=== PATIENT | male | born 1965 | race Caucasian/White ===

== ENCOUNTER 2020-11-26 23:41 | Emergency (ER) | payer BC, OTHER ==
[2020-11-26 23:59] VITALS: BP 133/88; PULSE 68
--- NOTE | 2020-11-27 00:01 | EDM.PDOC ---
ED HPI GENERAL MEDICAL PROBLEM - General Chief Complaint: Lower Extremity Injury/Pain Stated Complaint: PAIN IN FOOT Time Seen by Provider: 11/26/20 23:45 Source of Information: Reports: Patient History Limitations: Reports: No Limitations - History of Present Illness INITIAL COMMENTS - FREE TEXT/NARRATIVE: Patient is a 55-year-old male with a history of high blood pressure diabetes presents today for left ankle pain. Patient states that he was working yesterday and after work he had pain to the medial side of his left ankle. Patient himself cannot remember any incident that he could have hurt the ankle. He has pain with walking or trying to flex or extend the ankle. Is not take any medicine for the pain at home he has no associated symptoms pain is nonradiating pain is achy feeling. Duration: Day(s): Location: Reports: Lower Extremity, Left Quality: Reports: Ache Severity: Mild Improves with: Reports: None Worsens with: Reports: Movement Context: Reports: Other Associated Symptoms: Reports: No Other Symptoms Left Foot Pain Score (Numeric/FACES): 9 - Related Data Allergies Allergy/AdvReac Type Severity Reaction Status Date / Time No Known Allergies Allergy Verified 04/30/14 16:56 Home Meds: Home Meds Levothyroxine Sodium [Synthroid] 200 mcg PO DAILY 11/26/20 [History] Meloxicam 15 mg PO DAILY 11/26/20 [History] buPROPion [Wellbutrin SR] 150 mg PO DAILY 11/26/20 [History] hydroCHLOROthiazide [Hydrochlorothiazide] 25 mg PO DAILY 11/26/20 [History] Review of Systems - Review of Systems Review Of Systems: See Below Constitutional: Reports: No Symptoms Eyes: Reports: No Symptoms Ears: Reports: No Symptoms Nose: Reports: No Symptoms Mouth/Throat: Reports: No Symptoms Respiratory: Reports: No Symptoms Cardiovascular: Reports: No Symptoms GI/Abdominal: Reports: No Symptoms Genitourinary: Reports: No Symptoms Musculoskeletal: Reports: Other (Ankle pain) Skin: Reports: No Symptoms Neurological: Reports: No Symptoms Psychiatric: Reports: No Symptoms ED EXAM, GENERAL - Physical Exam Exam: See Below Exam Limited By: No Limitations General Appearance: Alert, WD/WN, No Apparent Distress Respiratory/Chest: No Respiratory Distress Cardiovascular: Normal Peripheral Pulses Peripheral Pulses: 2+: Dorsalis Pedis (L), Dorsalis Pedis (R) GI/Abdominal: Normal Bowel Sounds Back Exam: Normal Inspection Extremities: Normal Inspection, Normal Range of Motion. No: Non-Tender (Tenderness to the medial side of left ankle) Neurological: Alert, Oriented Course - Vital Signs Last Recorded V/S: Last Vital Signs Temp 98.5 F 11/26/20 23:54 Pulse 68 11/26/20 23:54 Resp 19 11/26/20 23:54 BP 133/88 11/26/20 23:54 Pulse Ox 98 11/26/20 23:54 - Orders/Labs/Meds Orders: Active Orders 24 hr Category Date Time Status DME for Discharge [COMM] Stat Oth 11/27/20 01:31 Ordered - Re-Assessments/Exams Free Text/Narrative Re-Assessment/Exam: 11/27/20 01:32 Patient x-ray shows some lucencies we did a CAT scan did not show any fractures patient will be discharged home with crutches and Tao wrap What you are ordering Tao wrap and crutches Why you are ordering it Pain control help ambulation How it will benefit patient Ambulation How long is patient to use it 7-14days Departure - Departure Time of Disposition: 01:33 Disposition: Home, Self-Care 01 Condition: Good Clinical Impression: Ankle sprain - Discharge Information *PRESCRIPTION DRUG MONITORING PROGRAM REVIEWED*: Not Applicable *COPY OF PRESCRIPTION DRUG MONITORING REPORT IN PATIENT CORBY: Not Applicable Instructions: Ankle Sprain, [id number] Referrals: Evelyn Lemus GIS DATABASE ADMINISTRATOR [Primary Care Provider] - Forms: ED Department Discharge Additional Instructions: The following information is given to patients seen in the emergency department who are being discharged to home. This information is to outline your options for follow-up care. We provide all patients seen in our emergency department with a follow-up referral. The need for follow-up, as well as the timing and circumstances, are variable depending upon the specifics of your emergency department visit. If you don't have a primary care physician on staff, we will provide you with a referral. We always advise you to contact your personal physician following an emergency department visit to inform them of the circumstance of the visit and for follow-up with them and/or the need for any referrals to a consulting specialist. The emergency department will also refer you to a specialist when appropriate. This referral assures that you have the opportunity for follow-up care with a specialist. All of these measure are taken in an effort to provide you with optimal care, which includes your follow-up. Under all circumstances we always encourage you to contact your private physician who remains a resource for coordinating your care. When calling for follow-up care, please make the office aware that this follow-up is from your recent emergency room visit. If for any reason you are refused follow-up, please contact the [facility] Emergency Department at and asked to speak to the emergency department charge nurse. Please follow up with your primary care physician. If you do not have a primary care physician, see below: [facility] [address] [place] [id number] My [facility] [address] [place] [address] Seen today for pain in your left ankle. We did x-ray and CTs not show any fractures. Most likely sprain. We will place an Tao wrap and also gave you crutches. If you continue to have pain please follow-up with your primary care physician as you may need additional images. If you have any other concerning signs or symptom please return to the ED. Sepsis Event Note (ED) - Focused Exam Vital Signs: Vital Signs Temp Pulse Resp BP Pulse Ox 11/26/20 23:54 98.5 F 68 19 133/88 98 - My Orders Last 24 Hours: My Active Orders 11/27/20 01:31 DME for Discharge [COMM] Stat - Assessment/Plan Last 24 Hours: My Active Orders 11/27/20 01:31 DME for Discharge [COMM] Stat Plan: Patient is a 55-year-old male presents today for left ankle pain. Patient cannot remember any injuries to where he got hurt ankle but states there is tenderness to the left medial side. We will obtain x-rays and reassess.
--- NOTE | 2020-11-27 00:20 | CR ---
INDICATION: Pain medial side of ankle TECHNIQUE: Ankle radiograph 3 views left COMPARISON: None FINDINGS: Bone: On the lateral exam, there is a linear lucency projecting along the posterior aspect of the distal tibia and fibula. Joint: The ankle mortise joint and the visualized hindfoot joints are unremarkable in appearance. No significant ankle effusion is seen. Soft tissue: The [place] fat pad and the Achilles` tendon is normal in appearance. No radiopaque foreign bodies are seen. IMPRESSION: 1. On the lateral exam, there is a linear lucency projecting along the posterior aspect of the distal tibia and fibula. Assessment with CT or MRI may be helpful to exclude a nondisplaced fracture. Dictated by Shawn Guo MD @ 11/27/2020 12:18:57 AM Dictated by: Shawn Guo MD @ 11/27/2020 00:19:02 (Electronically Signed)
--- NOTE | 2020-11-27 01:19 | CT ---
INDICATION: Left ankle injury TECHNIQUE: CT left ankle without i.v. contrast. Coronal and sagittal reformats were obtained. COMPARISON: Radiograph 11/27/2020 FINDINGS: Bone: No acute fractures or aggressive bone lesions are identified. Large osteophytic ridges are present along the lateral aspect of the tibia and interosseous region which produces the linear lucency seen on recent radiograph. Joint: The visualized joints of the ankle and foot are unremarkable. No significant joint effusion is seen. Soft tissue: The Achilles tendon is unremarkable in appearance by CT. No fluid collections are identified. No radiopaque foreign bodies are seen. IMPRESSION: 1. No acute osseous injuries or abnormalities are noted. Dictated by Shawn Guo MD @ 11/27/2020 1:17:47 AM Please note that all CT scans at this facility use dose modulation, iterative reconstruction, and/or weight-based dosing when appropriate to reduce radiation dose to as low as reasonably achievable. Dictated by: Shawn Guo MD @ 11/27/2020 01:18:31 (Electronically Signed)
== END 2020-11-27 01:52 | disposition home or self-care (01) ==
LOC: MW.ED 23:41
DX: S93.402A Sprain of unspecified ligament of left ankle, initial encounter (principal); Z79.899 Other long term (current) drug therapy; X50.1XXA Overexertion from prolonged static or awkward postures, initial encounter; Y92.009 Unspecified place in unspecified non-institutional (private) residence as the place of occurrence of the external cause
CPT/HCPCS: 73610-26-LT; 73610-LT; 73700-26-LT; 73700-LT; 99284-25

== ENCOUNTER 2021-03-08 20:58 | Emergency (ER) | payer BC ==
[2021-03-08 22:14] VITALS: BP 135/77
[2021-03-08] MEDS ORDERED: Ketorolac 30 MG/ML SDV IM ONE (22:27)
[2021-03-08] MEDS ORDERED: Acetaminophen 325 MG Tab PO ONE (22:28)
--- NOTE | 2021-03-08 23:03 | EDM.PDOC ---
ED HPI GENERAL MEDICAL PROBLEM - General Chief Complaint: General Stated Complaint: COV POS, HIGH FEVER Time Seen by Provider: 03/08/21 22:58 - History of Present Illness INITIAL COMMENTS - FREE TEXT/NARRATIVE: HISTORY AND PHYSICAL: History of present illness: This is a 55-year-old gentleman who presents ER today secondary to extremely high fevers at home, body aches and myalgias. Patient reports that he was recently diagnosed with influenza A as well as coronavirus. Patient reports that he received his Regeneron therapy today and when he went home he was having chills as well as extremely high fever. Patient's reports that she gave him Mucinex cold therapy that had a antipyretic in it but is unsure how much in which 1. Patient denies any vomiting or diarrhea. He does complain of nausea with decreased appetite. Patient denies any chest pain, calf tenderness. Patient has not hemoptysis.. Patient is complaining of cough and congestion. Patient reports no nuchal rigidity or photophobia. Review of systems: As per history of present illness and below otherwise all systems reviewed and negative. Past medical history: As per history of present illness and as reviewed below otherwise noncontributory. Surgical history: As per history of present illness and as reviewed below otherwise noncontributory. Social history: No reported history of drug abuse. Family history: As per history of present illness and as reviewed below otherwise noncontributory. Physical exam: This patient was seen and evaluated during the 2019 SARS-CoV-2 novel coronavirus pandemic period. Community viral transmission is ongoing at time of this encounter and the emergency department is operating under pandemic response procedures. Constitutional: Patient is oriented to person, place, and time. Appears well-developed and well-nourished. No distress. HEENT: Moist mucous membranes. Neck supple, no nuchal rigidity, no photophobia, no Kernig's sign or Brudzinski sign, patient does not present with signs or symptoms of be consistent with meningitis. Head: Normocephalic and atraumatic Eyes: Right eye exhibits no discharge. Left eye exhibits no discharge. No scleral icterus Neck: Normal range of motion. No tracheal deviation present. Cardiovascular: Normal rate and regular rhythm. Pulmonary: Effort normal, no respiratory distress. Abdominal: No distention Musculoskeletal: Normal range of motion Neurologic: Alert and oriented to person, place and time. Skin: [place], warm and dry. Psychiatric: Normal mood and affect. Behavior is normal. Judgment and thought content normal. Nursing note and vital signs have been reviewed Diagnostics: [] Therapeutics: [] Assessment and plan: 55-year-old gentleman who presents ER today secondary to not feeling well after being diagnosed with coronavirus. Patient is clinically hemodynamically stable here in the ED. Patient's oxygen level ranges between 92 to 97% on room air while sleeping in bed. I have discussed with the patient symptomatic therapy for coronavirus and expectations. Patient was given a dose of Toradol and acetaminophen here in the ED and will be discharged home with instructions take ibuprofen and Zofran as well as acetaminophen at home to help with the symptoms. Patient has been instructed to return to the ER if you start having increased shortness of breath or any other new or concerning symptoms. Patient verbalized understanding. All questions been answered. At this time, the patient does not require care for inpatient level of care for coronavirus infection. Reassessment at the time of disposition demonstrates that the patient is in no acute distress. The patient has remained stable throughout the entire ED visit and is without objective evidence for acute process requiring urgent interventio n or hospitalization. The patient is stable for discharge, counseling is provided as documented above, discussed symptomatic treatment and specific conditions for return. I have spoken with the patient/caregiver and discussed todays findings, in addition to providing specific details for the plan of care. Questions are answered and there is agreement with the plan. Definitive disposition and diagnosis as appropriate pending reevaluation and review of above. Headache Pain Score (Numeric/FACES): 8 - Related Data Allergies Allergy/AdvReac Type Severity Reaction Status Date / Time No Known Allergies Allergy Verified 03/08/21 22:08 Home Meds: Home Meds Levothyroxine Sodium [Synthroid] 200 mcg PO DAILY 11/26/20 [History] Meloxicam 15 mg PO DAILY 11/26/20 [History] buPROPion [Wellbutrin SR] 150 mg PO DAILY 11/26/20 [History] Allopurinol [Zyloprim] 100 mg PO DAILY 03/08/21 [History] Ibuprofen 600 mg PO Q6HR PRN #30 tablet 03/08/21 [Rx] Ondansetron [Zofran ODT] 4 mg PO Q6H PRN #12 tab.dis 03/08/21 [Rx] predniSONE [Prednisone] 20 mg PO DAILY 03/08/21 [History] Past Medical History HEENT History: Reports: None Cardiovascular History: Reports: Hypertension Respiratory History: Reports: None Gastrointestinal History: Reports: None Genitourinary History: Reports: None Musculoskeletal History: Reports: None Neurological History: Reports: None Psychiatric History: Reports: None Endocrine/Metabolic History: Reports: Hypothyroidism Hematologic History: Reports: None Immunologic History: Reports: None Oncologic (Cancer) History: Reports: None Dermatologic History: Reports: None - Infectious Disease History Infectious Disease History: Reports: Chicken Pox, Novel Coronavirus - Past Surgical History Head Surgeries/Procedures: Reports: None Endocrine Surgical History: Reports: Thyroidectomy Social & Family History - Family History Family Medical History: No Pertinent Family History - Caffeine Use Caffeine Use: Reports: None - Recreational Drug Use Recreational Drug Use: No ED ROS GENERAL - Review of Systems Review Of Systems: See Below ED EXAM, GENERAL - Physical Exam Exam: See Below Course - Vital Signs Last Recorded V/S: Last Vital Signs Temp 100.7 F H 03/08/21 22:10 Pulse 104 H 03/08/21 22:10 Resp 18 03/08/21 22:10 BP 135/77 03/08/21 22:10 Pulse Ox 94 L 03/08/21 22:10 - Orders/Labs/Meds Meds: Medications Discontinued Medications Generic Name Dose Route Start Last Admin Trade Name Sivaq PRN Reason Stop Dose Admin Acetaminophen 650 mg 03/08/21 22:28 03/08/21 22:49 Acetaminophen 325 Mg Tab PO 03/08/21 22:29 650 mg NOW ONE Administration Ketorolac Tromethamine 30 mg 03/08/21 22:27 03/08/21 22:49 Ketorolac 30 Mg/Ml Sdv IM 03/08/21 22:28 30 mg ONETIME ONE Administration Departure - Departure Time of Disposition: 23:01 Disposition: Home, Self-Care 01 Condition: Good Clinical Impression: COVID-19 virus infection, URI due to influenza - Discharge Information Instructions: Influenza, Adult, [id number], 10 Things You Can Do to Manage Your COVID-19 Symptoms at Home - [facility] (09/17/2020), COVID-19 Quarantine vs. Isolation - [facility] (11/29/2020) Additional Instructions: You were seen in the ER today secondary signs and symptoms consistent with coronavirus and influenza. Over the next several days you will have high fevers, body aches, nausea. Please take ibuprofen 600 mg every 6 hours for body aches and fevers. You can also take acetaminophen 1 g every 6 hours as needed for body aches and fevers. You will also be given a prescription for Zofran to take to help your nausea over the next several days. Please return to the ER if you start having increased shortness of breath or if your ox level dips below 90%. 1. Your COVID-19 screening is positive. That means you do have the coronavirus and you are considered contagious. Your vital signs and oxygen saturation are well enough that you were able to monitor your symptoms at home. Continue to monitor for trouble breathing, new confusion or inability to arouse, bluish lips or face or any of the other symptoms we discussed -if this occurs please return to the emergency room. 2. Please self quarantine over the next 10 days. Inform any persons that you have been in contact with since you started becoming symptomatic that you have tested positive; they should be made aware and take the appropriate steps as needed. 3. You can take NyQuil during the evening to help get a restful night sleep. May alternate Tylenol and ibuprofen as needed for pain and fever management. 4. The [facility] department will be calling you and following up with you. The [place] COVID 19 Hotline phone number , They are open Sunday - Sunday 7am - 7pm. Follow up with your primary care provider for re-evaluation and re-testing after the 10 day quarantine and discuss when you should be seen. The following information is given to patients seen in the emergency department who are being discharged to home. This information is to outline your options for follow-up care. We provide all patients seen in our emergency department with a follow-up referral. The need for follow-up, as well as the timing and circumstances, are variable depending upon the specifics of your emergency department visit. If you don't have a primary care physician on staff, we will provide you with a referral. We always advise you to contact your personal physician following an emergency department visit to inform them of the circumstance of the visit and for follow-up with them and/or the need for any referrals to a consulting specialist. The emergency department will also refer you to a specialist when appropriate. This referral assures that you have the opportunity for follow-up care with a specialist. All of these measure are taken in an effort to provide you with optimal care, which includes your follow-up. Under all circumstances we always encourage you to contact your private physician who remains a resource for coordinating your care. When calling for follow-up care, please make the office aware that this follow-up is from your recent emergency room visit. If for any reason you are refused follow-up, please contact the [facility] Emergency Department at and asked to speak to the emergency department charge nurse. [facility] - [facility] [address] [place] [id number] [address] Sepsis Event Note (ED) - Focused Exam Vital Signs: Vital Signs Temp Pulse Resp BP Pulse Ox 03/08/21 22:10 100.7 F H 104 H 18 135/77 94 L
[2021-03-08 23:07] VITALS: PULSE 81
== END 2021-03-08 23:13 | disposition home or self-care (01) ==
LOC: MW.ED 20:58
DX: U07.1 COVID-19 (principal); J11.1 Influenza due to unidentified influenza virus with other respiratory manifestations; I10 Essential (primary) hypertension; E03.9 Hypothyroidism, unspecified; Z79.899 Other long term (current) drug therapy
CPT/HCPCS: 96372; 99283; A9270; J1885

== ENCOUNTER 2021-03-15 09:55 | Emergency (ER) | payer BC ==
[2021-03-15] MEDS ORDERED: Ketorolac 30 MG/ML SDV IVPUSH ONE (10:05)
[2021-03-15] MEDS ORDERED: Sodium Chloride 0.9% 1,000 ML IV ONE (10:05)
--- NOTE | 2021-03-15 10:14 | EDM.PDOC ---
ED HPI GENERAL MEDICAL PROBLEM - General Chief Complaint: Respiratory Problem Stated Complaint: COUGHING SOB Time Seen by Provider: 03/15/21 09:59 Source of Information: Reports: Patient History Limitations: Reports: No Limitations - History of Present Illness INITIAL COMMENTS - FREE TEXT/NARRATIVE: HISTORY AND PHYSICAL: History of present illness: Patient is a 55-year-old male who presents to the emergency room with complaints of fatigue, headache, body aches, cough, shortness of breath. Patient states he was diagnosed with COVID-19 and is currently off quarantine. He has had upper respiratory symptoms over the past 2 weeks, symptoms have worsened within the past 1 week and "unbearable" over the past 2 days. Patient denies any change in vision, syncope or near syncope. Denies any chest pain, back pain, abdominal pain, nausea, vomiting, diarrhea, constipation or dysuria. Has not noted any blood in urine or stool. Patient has been eating and drinking appropriately. Review of systems: As per history of present illness and below otherwise all systems reviewed and negative. Past medical history: As per history of present illness and as reviewed below otherwise noncontributory. Surgical history: As per history of present illness and as reviewed below otherwise noncontributory. Social history: See social history for further information Family history: As per history of present illness and as reviewed below otherwise noncontributory. Physical exam: General: Well developed and well nourished 55-year-old male. Alert and orientated x 3. Nontoxic in appearance and in no acute distress. Vital signs are stable and have been reviewed by me. Nursing notes were reviewed. HEENT: Atraumatic, normocephalic, pupils equal and reactive bilaterally, negative for conjunctival pallor or scleral icterus, mucous membranes moist, TMs normal bilaterally, throat clear, neck supple, nontender, trachea midline. No drooling or trismus noted. No meningeal signs. No hot potato voice noted. Lungs: Diminished to auscultation bilaterally. No wheezes, rales, or rhonchi. Chest nontender. Normal work of breathing, no accessory muscles used. Heart: S1S2, regular rate and rhythm without overt murmur, gallops, or rubs. No JVD. No peripheral edema Abdomen: Soft, nondistended, nontender. Normoactive bowel sounds. Negative for masses or costovertebral tenderness. Skin: Diaphoretic intact, warm, dry. No lesions or rashes noted. Hematologic: No petechiae or purpra. Mucosa appropriate color and normal nail bed color and refill. Extremities: Atraumatic, moves all extremities per self without difficulty or deficits, negative for cords or calf pain. Neurovascular unremarkable. Neuro: Awake, alert, oriented. Cranial nerves II through XII unremarkable. Cerebellum unremarkable. Motor and sensory unremarkable throughout. Exam nonfocal. Psychiatric: Mood and affect are appropriate. Normal thought process. Answering questions appropriately. Please note that the patient was seen and evaluated during the 2019 SARS-CoV-2 novel coronavirus pandemic period. Community viral transmission is ongoing at time of this encounter and the emergency department is operating under pandemic response procedures. Medical Decision Making: Patient is a 55-year-old male who presents to the emergency room with complaints of fatigue, headache, shortness of breath and cough. Patient was diagnosed with COVID-19 2 weeks ago, did receive the monoclonal antibody. States he was starting to feel improvement although over the past few days symptoms. Chest x-ray is unremarkable. Labs are unremarkable. VSS. Will do a Pro-Air inhaler for comfort care. I have talked with the patient about today's findings, in addition to providing specific details for plan of care. Reassessment at the time of disposition demonstrates that the patient is in no acute distress. The patient is stable for discharge, counseling was provided and we discussed in great detail signs and symptoms that would prompt them to return to the Emergency Department. Medication, follow up and supportive care measures were reviewed and discussed. Voices understanding and is agreeable to plan of care. Denies any further questions or concerns at this time. Diagnostics: CBC, CMP, troponin, EKG Therapeutics: Toradol, ProAir Prescription: None Impression: Long COVID-19 Plan: 1. You were evaluated today on an emergent basis. Your chest x-ray is normal. Your blood work, including cardiac enzymes are normal. Your symptoms are likely a prolonged COVID symptoms. 2. You can alternate Tylenol and ibuprofen as needed for pain and fever management. 3. We encourage you to follow up with your primary care provider for re- evaluation and further care/management. 4. If your symptoms should worsen, new symptoms develop or any of the signs and symptoms we discussed should arise please return to the emergency room or call 911 (if needed). Definitive disposition and diagnosis as appropriate pending reevaluation and review of above. Generalized Pain Score (Numeric/FACES): 5 - Related Data Allergies Allergy/AdvReac Type Severity Reaction Status Date / Time No Known Allergies Allergy Verified 03/15/21 10:07 Home Meds: Home Meds Levothyroxine Sodium [Synthroid] 200 mcg PO DAILY 11/26/20 [History] Allopurinol [Zyloprim] 100 mg PO DAILY 03/08/21 [History] Ibuprofen 600 mg PO Q6HR PRN #30 tablet 03/08/21 [Rx] predniSONE [Prednisone] 20 mg PO DAILY 03/08/21 [History] Past Medical History HEENT History: Reports: None Cardiovascular History: Reports: Hypertension Respiratory History: Reports: None Gastrointestinal History: Reports: None Genitourinary History: Reports: None Musculoskeletal History: Reports: None Neurological History: Reports: None Psychiatric History: Reports: None Endocrine/Metabolic History: Reports: Hypothyroidism Hematologic History: Reports: None Immunologic History: Reports: None Oncologic (Cancer) History: Reports: None Dermatologic History: Reports: None - Infectious Disease History Infectious Disease History: Reports: Chicken Pox, Novel Coronavirus - Past Surgical History Head Surgeries/Procedures: Reports: None Endocrine Surgical History: Reports: Thyroidectomy Social & Family History - Family History Family Medical History: No Pertinent Family History - Caffeine Use Caffeine Use: Reports: None ED ROS GENERAL - Review of Systems Review Of Systems: Comprehensive ROS is negative, except as noted in HPI. ED EXAM, GENERAL - Physical Exam Exam: See Below (See dictation) Course - Vital Signs Last Recorded V/S: Last Vital Signs Temp 96.5 F L 03/15/21 10:08 Pulse 82 03/15/21 10:08 Resp 20 03/15/21 10:08 BP 177/97 H 03/15/21 10:08 Pulse Ox 98 03/15/21 10:08 - Orders/Labs/Meds Orders: Active Orders 24 hr Category Date Time Status RT Post Treatment Assessment [RC] Click to Edit Care 03/15/21 12:55 Ordered RT Pre-Treatment Assessment [RC] Click to Edit Care 03/15/21 12:55 Ordered Albuterol [Ventolin HFA] Med 03/15/21 12:55 Once 1 gm INH ONETIME ONE Labs: Laboratory Tests 03/15/21 03/15/21 03/15/21 Range/Units 10:28 11:52 11:52 WBC 9.25 (4.0-11.0) K/uL RBC 5.08 (4.50-5.90) M/uL Hgb 14.7 (13.0-17.0) g/dL Hct 42.5 (38.0-50.0) % MCV 83.7 (80.0-98.0) fL MCH 28.9 (27.0-32.0) pg MCHC 34.6 (31.0-37.0) g/dL RDW Std Deviation 38.6 (28.0-62.0) fl RDW Coeff of Amy 13 (11.0-15.0) % Plt Count 221 (150-400) K/uL MPV 10.40 (7.40-12.00) fL Neut % (Auto) 74.9 (48.0-80.0) % Lymph % (Auto) 11.9 L (16.0-40.0) % Hamlin % (Auto) 12.1 (0.0-15.0) % Eos % (Auto) 1.0 (0.0-7.0) % Baso % (Auto) 0.1 (0.0-1.5) % Neut # (Auto) 6.9 H (1.4-5.7) K/uL Lymph # (Auto) 1.1 (0.6-2.4) K/uL Hamlin # (Auto) 1.1 H (0.0-0.8) K/uL Eos # (Auto) 0.1 (0.0-0.7) K/uL Baso # (Auto) 0.0 (0.0-0.1) K/uL Nucleated RBC % 0.0 /100WBC Nucleated RBCs # 0 K/uL Sodium 138 (136-148) mmol/L Potassium 4.0 (3.5-5.1) mmol/L Chloride 105 (98-107) mmol/L Carbon Dioxide 26.5 (21.0-32.0) mmol/L BUN 17 (7.0-18.0) mg/dL Creatinine 0.7 L (0.8-1.3) mg/dL Est Cr Clr Drug Dosing 118.07 mL/min Estimated GFR (MDRD) > 60.0 ml/min Glucose 89 (74-106) mg/dL Calcium 9.1 (8.5-10.1) mg/dL Total Bilirubin 0.2 (0.2-1.0) mg/dL AST 15 (15-37) IU/L ALT 33 (14-63) IU/L Alkaline Phosphatase 99 (46-116) U/L Troponin I < 0.050 (0.000-0.056) ng/mL Total Protein 7.4 (6.4-8.2) g/dL Albumin 3.4 (3.4-5.0) g/dL Globulin 4.0 (2.6-4.0) g/dL Albumin/Globulin Ratio 0.9 (0.9-1.6) Monoscreen (NEG) Influenza Type A RNA NEGATIVE (NEGATIVE) Influenza Type B RNA NEGATIVE (NEGATIVE) SARS-CoV-2 RNA (DONNA) POSITIVE H (NEGATIVE) 03/15/21 Range/Units 11:52 WBC (4.0-11.0) K/uL RBC (4.50-5.90) M/uL Hgb (13.0-17.0) g/dL Hct (38.0-50.0) % MCV (80.0-98.0) fL MCH (27.0-32.0) pg MCHC (31.0-37.0) g/dL RDW Std Deviation (28.0-62.0) fl RDW Coeff of Amy (11.0-15.0) % Plt Count (150-400) K/uL MPV (7.40-12.00) fL Neut % (Auto) (48.0-80.0) % Lymph % (Auto) (16.0-40.0) % Hamlin % (Auto) (0.0-15.0) % Eos % (Auto) (0.0-7.0) % Baso % (Auto) (0.0-1.5) % Neut # (Auto) (1.4-5.7) K/uL Lymph # (Auto) (0.6-2.4) K/uL Hamlin # (Auto) (0.0-0.8) K/uL Eos # (Auto) (0.0-0.7) K/uL Baso # (Auto) (0.0-0.1) K/uL Nucleated RBC % /100WBC Nucleated RBCs # K/uL Sodium (136-148) mmol/L Potassium (3.5-5.1) mmol/L Chloride (98-107) mmol/L Carbon Dioxide (21.0-32.0) mmol/L BUN (7.0-18.0) mg/dL Creatinine (0.8-1.3) mg/dL Est Cr Clr Drug Dosing mL/min Estimated GFR (MDRD) ml/min Glucose (74-106) mg/dL Calcium (8.5-10.1) mg/dL Total Bilirubin (0.2-1.0) mg/dL AST (15-37) IU/L ALT (14-63) IU/L Alkaline Phosphatase (46-116) U/L Troponin I (0.000-0.056) ng/mL Total Protein (6.4-8.2) g/dL Albumin (3.4-5.0) g/dL Globulin (2.6-4.0) g/dL Albumin/Globulin Ratio (0.9-1.6) Monoscreen NEGATIVE (NEG) Influenza Type A RNA (NEGATIVE) Influenza Type B RNA (NEGATIVE) SARS-CoV-2 RNA (DONNA) (NEGATIVE) Meds: Medications Discontinued Medications Generic Name Dose Route Start Last Admin Trade Name Freq PRN Reason Stop Dose Admin Sodium Chloride 1,000 mls @ 999 mls/hr 03/15/21 10:05 Normal Saline IV 03/15/21 11:05 STAT ONE Ketorolac Tromethamine 30 mg 03/15/21 10:05 Ketorolac 30 Mg/Ml Sdv IVPUSH 03/15/21 10:06 ONETIME ONE Ketorolac Tromethamine 60 mg 03/15/21 11:59 Ketorolac 60 Mg/2 Ml Sdv IM 03/15/21 12:00 ONETIME ONE Departure - Departure Time of Disposition: 12:57 Disposition: Home, Self-Care 01 Clinical Impression: Long COVID - Discharge Information Instructions: 10 Things You Can Do to Manage Your COVID-19 Symptoms at Home - [facility] (09/17/2020) Referrals: Evelyn Lemus [employer] [Primary Care Provider] - Forms: ED Department Discharge Additional Instructions: The following information is given to patients seen in the emergency department who are being discharged to home. This information is to outline your options for follow-up care. We provide all patients seen in our emergency department with a follow-up referral. The need for follow-up, as well as the timing and circumstances, are variable depending upon the specifics of your emergency department visit. If you don't have a primary care physician on staff, we will provide you with a referral. We always advise you to contact your personal physician following an emergency department visit to inform them of the circumstance of the visit and f or follow-up with them and/or the need for any referrals to a consulting specialist. The emergency department will also refer you to a specialist when appropriate. This referral assures that you have the opportunity for follow-up care with a specialist. All of these measure are taken in an effort to provide you with optimal care, which includes your follow-up. Under all circumstances we always encourage you to contact your private physician who remains a resource for coordinating your care. When calling for follow-up care, please make the office aware that this follow-up is from your recent emergency room visit. If for any reason you are refused follow-up, please contact the [facility] Emergency Department at and asked to speak to the emergency department charge nurse. [facility] Primary Care [address] [place] [id number] [place] [address] Thank you for choosing the [facility] emergency department in [place] for your medical needs today. It was a pleasure caring for you. Today you were seen in the emergency department for COVID-19 1. You were evaluated today on an emergent basis. Your chest x-ray is normal. Your blood work, including cardiac enzymes are normal. Your symptoms are likely a prolonged COVID symptoms. 2. You can alternate Tylenol and ibuprofen as needed for pain and fever management. 3. We encourage you to follow up with your primary care provider for re- evaluation and further care/management. 4. If your symptoms should worsen, new symptoms develop or any of the signs and symptoms we discussed should arise please return to the emergency room or call 911 (if needed). Sepsis Event Note (ED) - Focused Exam Vital Signs: Vital Signs Temp Pulse Resp BP Pulse Ox 03/15/21 10:08 96.5 F L 82 20 177/97 H 98 - My Orders Last 24 Hours: My Active Orders 03/15/21 12:55 RT Post Treatment Assessment [RC] Click to Edit RT Pre-Treatment Assessment [RC] Click to Edit Albuterol [Ventolin HFA] 1 gm INH ONETIME ONE - Assessment/Plan Last 24 Hours: My Active Orders 03/15/21 12:55 RT Post Treatment Assessment [RC] Click to Edit RT Pre-Treatment Assessment [RC] Click to Edit Albuterol [Ventolin HFA] 1 gm INH ONETIME ONE
--- NOTE | 2021-03-15 10:29 | CR ---
INDICATION: Shortness of breath. TECHNIQUE: Chest 1 views. COMPARISON: None. FINDINGS: Cardiovascular and mediastinum: Heart size and vasculature are normal in caliber and appearance. Lungs and pleural spaces: Lungs are clear. No sign of infiltrate or mass. No sign of pleural effusion. No pneumothorax. Bones and soft tissues: No significant findings. IMPRESSION: No acute or significant findings. Dictated by Kana Rogers MD @ 03/15/2021 10:28:07 AM (Electronically Signed)
--- NOTE | 2021-03-15 10:42 | PCM.EKG ---
#1 Interpretation EKG Interpretation Comments: EKG performed 03/15/2021 at 10:13 AM shows sinus rhythm with a heart rate 71 SC 159 QT duration 394 axis [address] and T impression normal EKG
[2021-03-15 11:15] LABS: CORONAVIRUS COVID-19 NAA POSITIVE (NEGATIVE); INFLUENZA A NAA NEGATIVE (NEGATIVE); INFLUENZA B NAA NEGATIVE (NEGATIVE)
[2021-03-15] MEDS ORDERED: Ketorolac 60 MG/2 ML SDV IM ONE (11:59)
[2021-03-15 12:48] LABS: BLOOD UREA NITROGEN,BUN 17 mg/dL (7.0-18.0); CARBON DIOXIDE,CO2 26.5 mmol/L (21.0-32.0); CHLORIDE,CL 105 mmol/L (98-107); GLUCOSE RANDOM 89 mg/dL (74-106); SODIUM,NA 138 mmol/L (136-148)
[2021-03-15] MEDS ORDERED: Albuterol 8 GM Inhaler INH ONE (12:55)
[2021-03-15 13:04] VITALS: BP 147/97; PULSE 74
== END 2021-03-15 13:09 | disposition home or self-care (01) ==
LOC: MW.ED 09:55
DX: U09.9 Post COVID-19 condition, unspecified (principal); U07.1 COVID-19; I10 Essential (primary) hypertension; E03.9 Hypothyroidism, unspecified; Z79.899 Other long term (current) drug therapy
CPT/HCPCS: 0240U; 36415; 71045; 80053; 84484; 85025; 86308; 93005; 96372; 99285; A9270; J1885

== ENCOUNTER 2021-12-18 14:19 | Emergency (ER) | payer BC ==
[2021-12-18] MEDS ORDERED: Ondansetron 4 MG/2 ML SDV IVPUSH ONE (15:07)
[2021-12-18] MEDS ORDERED: Lactated Ringers 1,000 ML IV STA (15:07)
[2021-12-18 16:08] LABS: POTASSIUM,K 3.3 mmol/L (3.5-5.1)
[2021-12-18] MEDS ORDERED: Ondansetron 4 MG Tab.DIS PO ONE ×2 (17:43)
[2021-12-18] MEDS ORDERED: Iopamidol 755 Mg/ML 100 ML Bottle IVPUSH ONE (17:53)
[2021-12-18 18:15] VITALS: BP 151/85; PULSE 80
== END 2021-12-18 16:03 | disposition home or self-care (01) ==
LOC: MW.ED 14:19
DX: R11.2 Nausea with vomiting, unspecified (principal); R19.7 Diarrhea, unspecified; I10 Essential (primary) hypertension; Z79.899 Other long term (current) drug therapy; Z86.16 Personal history of COVID-19
CPT/HCPCS: 36415; 74177; 80053; 81001; 83690; 83735; 84484; 85025; 96361; 96374; 99284; A9270; J2405; J7120; Q9967; 93010; 99283

== ENCOUNTER 2023-03-19 09:22 | Emergency (ER) | payer SELFPAY ==
[2023-03-19 09:41] VITALS: BP 181/95; PULSE 76
[2023-03-19 10:00] LABS: BASOPHILS ABSOLUTE AUTO 0.05 K/uL (0.00-0.20); BASOPHILS PERCENT AUTO 0.6 % (0.0-1.0); EOSINOPHILS ABSOLUTE AUTO 0.25 K/uL (0.00-0.45); EOSINOPHILS PERCENT AUTO 2.9 % (0.0-6.0); HEMATOCRIT 48.6 % (42.0-52.0); HEMOGLOBIN 17.4 g/dL (14.0-18.0); IMMATURE GRAN ABSOLUTE AUTO 0.05 K/uL (0.00-0.05); IMMATURE GRAN PERCENT AUTO 0.6 % (0.0-0.4); LYMPHOCYTES ABSOLUTE AUTO 1.38 K/uL (1.00-4.80); LYMPHOCYTES PERCENT AUTO 15.9 % (24.0-44.0); MEAN CORPUSCULAR HEMOGLOBIN 32.6 pg (28.0-32.0); MEAN CORPUSCULAR HGB CONC 35.8 g/dL (32.0-36.0); MEAN CORPUSCULAR VOLUME 91.2 fL (83.0-99.0); MEAN PLATELET VOLUME 9.9 fL (9.4-12.4); MONOCYTES ABSOLUTE AUTO 0.82 K/uL (0.00-0.80); MONOCYTES PERCENT AUTO 9.4 % (0.0-8.0); NEUTROPHILS ABSOLUTE AUTO 6.15 K/uL (1.80-7.70); NEUTROPHILS PERCENT AUTO 70.6 % (41.0-71.0); PLATELET COUNT,PLT 197 K/uL (150-400); RED BLOOD CELL COUNT 5.33 M/uL (4.52-5.90)
[2023-03-19 10:08] LABS: CORONAVIRUS COVID-19 NAA NEGATIVE (NEGATIVE); INFLUENZA A NAA NEGATIVE (NEGATIVE); INFLUENZA B NAA NEGATIVE (NEGATIVE); RESPIRATORY SYNCYTIAL VIR NAA NEGATIVE (NEGATIVE)
[2023-03-19 10:29] LABS: ALBUMIN 3.4 g/dL (3.4-5.0); BILIRUBIN TOTAL 0.3 mg/dL (0.2-1.0); CALCIUM 8.4 mg/dL (8.5-10.1); CARBON DIOXIDE,CO2 26.2 mmol/L (21.0-32.0); EST CRCL DRUG DOSING (CG) 80.75 mL/min; POTASSIUM,K 4.2 mmol/L (3.5-5.1); PROTEIN TOTAL,TP 6.8 g/dL (6.4-8.2)
== END 2023-03-19 11:13 | disposition home or self-care (01) ==
LOC: MW.ED 09:22
DX: J20.8 Acute bronchitis due to other specified organisms (principal); I10 Essential (primary) hypertension; E78.00 Pure hypercholesterolemia, unspecified; E03.9 Hypothyroidism, unspecified; Z79.899 Other long term (current) drug therapy; Z20.822 Contact with and (suspected) exposure to COVID-19
CPT/HCPCS: 0241U; 36415; 71045; 80053; 83880; 85025; 93005; 99285; 93010; 99283

== ENCOUNTER 2024-01-11 08:56 | Day surgery (SDC) | payer OTHER ==
[2024-01-11] MEDS: Lactated Ringers 1,000 ML IV SCH (09:20)
[2024-01-11] MEDS ORDERED: propofoL 500 MG/50 ML 50 ML ONE ×2 (09:22→10:54)
[2024-01-11] MEDS ORDERED: Midazolam 1 MG/ML 2 ML SDV ONE (09:24)
[2024-01-11] MEDS ORDERED: Lidocaine 2% 5 ML SDV ONE (09:24)
[2024-01-11] MEDS ORDERED: fentaNYL 100 MCG/2 ML SDV ONE (09:24)
[2024-01-11] MEDS ORDERED: Lidocaine 1% with EPINEPHrine 1:100,000 10 ML MDV ONE (10:08)
[2024-01-11] MEDS ORDERED: ceFAZolin 1 GM Vial ONE (10:15)
[2024-01-11] MEDS ORDERED: Ondansetron 4 MG/2 ML SDV ONE (11:19)
[2024-01-11 13:56] VITALS: BP 125/77; PULSE 58
[2024-01-11] MEDS ORDERED: ceFAZolin 2 GM in Sodium Chloride 0.9% 50 ML IV ONE (17:03)
== END 2024-01-11 12:35 | disposition home or self-care (01) ==
LOC: MW.SDS 08:56
PROVIDERS: ATTEND Surgery
DX: Z12.11 Encounter for screening for malignant neoplasm of colon (principal); D12.6 Benign neoplasm of colon, unspecified; K20.0 Eosinophilic esophagitis; K29.50 Unspecified chronic gastritis without bleeding; D17.22 Benign lipomatous neoplasm of skin and subcutaneous tissue of left arm; K44.9 Diaphragmatic hernia without obstruction or gangrene; K57.30 Diverticulosis of large intestine without perforation or abscess without bleeding; K21.9 Gastro-esophageal reflux disease without esophagitis; K64.8 Other hemorrhoids; I10 Essential (primary) hypertension; E89.0 Postprocedural hypothyroidism; F17.290 Nicotine dependence, other tobacco product, uncomplicated; Z79.899 Other long term (current) drug therapy
CPT/HCPCS: 24071; 43239; 45385; J0690; J2250; J2405; J2704; J3010; J7120; 00813; J3490

== ENCOUNTER 2024-04-16 12:17 | Emergency (ER) | payer OTHER ==
[2024-04-16] MEDS ORDERED: Sodium Chloride 0.9% 10 ML Syringe FLUSH PRN (13:02)
[2024-04-16 13:17] LABS: HEMATOCRIT 41.6 % (42.0-52.0); HEMOGLOBIN 14.8 g/dL (14.0-18.0); MEAN CORPUSCULAR HEMOGLOBIN 33.3 pg (28.0-32.0); MEAN CORPUSCULAR HGB CONC 35.6 g/dL (32.0-36.0); MEAN CORPUSCULAR VOLUME 93.7 fL (83.0-99.0); MEAN PLATELET VOLUME 10.8 fL (9.4-12.4); PLATELET COUNT,PLT 160 K/uL (150-400); RED BLOOD CELL COUNT 4.44 M/uL (4.52-5.90); WHITE BLOOD CELL COUNT,WBC 3.42 K/uL (3.9-11.3)
[2024-04-16 13:29] LABS: ALBUMIN 3.6 g/dL (3.4-5.0); BILIRUBIN TOTAL 0.7 mg/dL (0.2-1.0); CALCIUM 8.7 mg/dL (8.5-10.1); CARBON DIOXIDE,CO2 28.6 mmol/L (21.0-32.0); CREATININE 0.9 mg/dL (0.8-1.3); EST CRCL DRUG DOSING (CG) 88.67 mL/min; POTASSIUM,K 3.8 mmol/L (3.5-5.1); PROTEIN TOTAL,TP 7.1 g/dL (6.4-8.2)
[2024-04-16] MEDS: Aspirin 81 MG Tab.Chew PO ONE (13:55)
[2024-04-16 14:12] LABS: BASOPHILS ABSOLUTE MAN 0.07 K/uL (0.00-0.20); BASOPHILS PERCENT MAN 2 % (0-1); EOSINOPHILS ABSOLUTE MAN 0.07 K/uL (0.00-0.45); EOSINOPHILS PERCENT MAN 2 % (0-6); LYMPHOCYTES ABSOLUTE MAN 0.62 K/uL (1.00-4.80); LYMPHOCYTES PERCENT MAN 18 % (24-44); MONOCYTES ABSOLUTE MAN 0.48 K/uL (0.00-0.80); MONOCYTES PERCENT MAN 14 % (0-8); SEG NEUTROPHILS ABSOLUTE MAN 2.19 K/uL (1.80-7.70); SEG NEUTROPHILS PERCENT MAN 64 % (41-71)
[2024-04-16 16:01] VITALS: BP 116/68; PULSE 70
== END 2024-04-16 16:00 | disposition home or self-care (01) ==
LOC: MW.ED 12:17
DX: R07.89 Other chest pain (principal); I10 Essential (primary) hypertension; K21.9 Gastro-esophageal reflux disease without esophagitis; E03.9 Hypothyroidism, unspecified; Z79.890 Hormone replacement therapy; Z79.51 Long term (current) use of inhaled steroids; Z79.899 Other long term (current) drug therapy
CPT/HCPCS: 36415; 71045; 80053; 83735; 84484; 85025; 87428; 93005; 99285; A9270